=== PATIENT | female | born 1965 | race Caucasian/White ===

== ENCOUNTER 2019-07-12 17:41 | Emergency (ER) | payer OTHER, MEDICAID, SELFPAY ==
[~2019-07-12] VITALS: Ht 160 cm; Wt 99.8 kg
[~2019-07-12 17:41] MED LIST: DOCU-7 PO; FLUR30CA PO; FLUT1POW3 IH; GABA-636 PO; IBUP200C97 PO; LORA10TA19 PO; LORA2SOL69 PO; OMEP40EC24 PO; PARO30TA62 PO; QUET400T PO
[2019-07-12 18:03] VITALS: BP 150/75
--- NOTE | 2019-07-12 18:09 | NUR ---
53 Y/F PRESENTS TO ED FOR PRODUCTIVE COUGH X 12 DAYS. PT WAS SEEN AND DX WITH URI AND GIVEN MOTRIN. PT ALSO TAKING ALBUTEROL AND REPROTS RELIEF. PT REPORTS THROAT IRRIATION. PT ALSO REPORTS NAUSEA, AND VOMITING MUCUS. REPORTS DIARHEA, HX OF COLOSTOMY. RIGHT UPPER EXP WHEEZES AUSCULATED. RR EVEN AND UNLABORED. ABD SOFT, BS ACTIVE X 4. VSS. PMH- ASTHMA, HTN, HYPERCHOLESTEROLEMIA, BIPOLAR
--- NOTE | 2019-07-12 19:01 | NUR ---
PT AMBULATED TO BED 10, STEADY GAIT.
--- NOTE | 2019-07-12 19:11 | NUR ---
ERMD AT BEDSIDE EVALUATING PT.
[2019-07-12] MEDS ORDERED: DEXAMETHASONE 4 MG TAB PO ONE (19:15)
[2019-07-12] MEDS ORDERED: ALBUTEROL HFA MDI 90 MCG/ACTUATION 8 GM INH ONE ×2 (19:15)
[2019-07-12] MEDS ORDERED: AZITHROMYCIN 250 MG TAB PO ONE (19:15)
[2019-07-12] MEDS ORDERED: DEXAMETHASONE 10 MG/ML VIAL IVP ONE (19:20)
--- NOTE | 2019-07-12 19:20 | NUR ---
COVID SWAB COLLECTED AND SENT TO LAB.
--- NOTE | 2019-07-12 19:20 | NUR ---
RECIEVED REPORT FROM YOMAIRA EL.
--- NOTE | 2019-07-12 19:35 | NUR ---
XR AT BEDSIDE.
--- NOTE | 2019-07-12 19:43 | NUR ---
CALLED RT FOR INH MED ADMINISTRATION.
--- NOTE | 2019-07-12 19:50 | NUR ---
Respiratory Therapist at bedside for respiratory intervention.
--- NOTE | 2019-07-12 19:50 | NUR ---
RT AT BEDSIDE ADMINISTERING INH MEDICATIONS
--- NOTE | 2019-07-12 20:22 | NUR ---
SPOKE WITH CAMERON FROM [facility] TO EXPLAIN PLAN OF CARE FOR JOVITA AND REQUEST A RIDE HOME. SHE SAID SHE IS ON HER WAY.
[2019-07-12 20:23] VITALS: BP 150/75
--- NOTE | 2019-07-12 20:23 | NUR ---
Patient discharged with v/s stable. Written and verbal after care instructions given and explained. Patient alert, oriented and verbalized understanding of instructions. Ambulatory with steady gait. All questions addressed prior to discharge. ID band removed. Patient advised to follow up with PMD. Rx of PREDNISONE, AZITHROMYCIN given. Patient educated on indication of medication including possible reaction and side effects. Opportunity to ask questions provided and answered.
== END 2019-07-12 20:23 | disposition home or self-care (01) ==
LOC: EEVIPCON 17:41 → MED 17:41
DX: J06.9 Acute upper respiratory infection, unspecified (principal); I10 Essential (primary) hypertension; Z20.828 Contact with and (suspected) exposure to other viral communicable diseases; Z88.0 Allergy status to penicillin; Z79.899 Other long term (current) drug therapy
CPT/HCPCS: 71045; 96374; 99284; C9803; J1100; Q0092; U0003; 36415; 94664

== ENCOUNTER 2022-12-12 13:58 | Emergency (ER) | payer OTHER, MEDICAID ==
[~2022-12-12] VITALS: Ht 160 cm; Wt 97.1 kg
[2022-12-12 14:36] VITALS: BP 128/93; PULSE 81; RESP 20; TEMP 98.3; O2SAT 95
[2022-12-12] MEDS ORDERED: LIDOCAINE 5% 1 EA PATCH TP ONE (15:00)
[2022-12-12] MEDS ORDERED: methocarbamoL 500 MG TAB PO ONE (15:00)
[2022-12-12] MEDS ORDERED: ALBUTEROL SULFATE/IPRATROPIU 3 ML SOL IH ONE (15:00)
[2022-12-12] MEDS ORDERED: predniSONE 20 MG TAB PO ONE (15:00)
[2022-12-12] MEDS ORDERED: KETOROLAC 30 MG/ML VIAL IM ONE (15:00)
[2022-12-12 16:11] LABS: BASOPHILS # (AUTO) 0.1 K/uL (0.00-0.22); BASOPHILS % (AUTO) 0.8 % (0.0-2.0); EOSINOPHILS # (AUTO) 0.1 K/uL (0-0.4); EOSINOPHILS % (AUTO) 0.9 % (0.0-4.0); HEMATOCRIT 38.3 % (36-48); HEMOGLOBIN 13.1 g/dL (12.0-16.0); LYMPHOCYTES # (AUTO) 1.6 K/uL (2.5-16.5); LYMPHOCYTES % (AUTO) 18.4 % (20.5-51.1); MEAN CORPUSCULAR HEMOGLOBIN 32 pg (27-31); MEAN CORPUSCULAR HGB CONC 34 g/dL (33-37); MEAN CORPUSCULAR VOLUME 94.5 fL (80-94); MONOCYTES # (AUTO) 0.9 K/uL (0.8-1.0); MONOCYTES % (AUTO) 10.9 % (1.7-9.3); NEUTROPHILS # (AUTO) 5.9 K/uL (1.8-7.7); PLATELET COUNT (AUTO) 309 K/uL (140-450); RED BLOOD CELL COUNT(AUTO) 4.06 MIL/uL (4.20-5.40); RED CELL DISTRIBUTION WIDTH 13.6 % (11.6-13.7); WHITE BLOOD COUNT (AUTO) 8.6 K/uL (4.8-10.8)
[2022-12-12 16:32] LABS: ALBUMIN 3.9 g/dL (3.4-5.0); ANION GAP 13.6 (8-16); CREATININE 0.8 mg/dL (0.6-1.3); POTASSIUM 4.6 mmol/L (3.5-5.1); TOTAL BILIRUBIN 0.5 mg/dL (0.0-1.0); TOTAL PROTEIN, SERUM 7.5 g/dL (6.4-8.2)
[2022-12-12 16:52] VITALS: PULSE 85; RESP 21; O2SAT 95
[2022-12-12] MEDS ORDERED: HYDROcodone/APAP 5/325 MG 1 TAB TAB PO ONE (16:55)
[2022-12-12] MEDS ORDERED: PRED20TA5 PO ×2 (16:59→18:25)
[2022-12-12] MEDS ORDERED: ACET-5629 PO ×2 (16:59→18:25)
[2022-12-12] MEDS ORDERED: LID5T TP ×2 (16:59→18:25)
[2022-12-12] MEDS ORDERED: DICL100G32 TP ×2 (17:00→18:25)
[2022-12-12 17:09] VITALS: BP 119/89; PULSE 86; RESP 18; TEMP 98.3; O2SAT 95
[2022-12-14] MEDS ORDERED: ACET-8905 PO (09:56)
== END 2022-12-12 17:09 | disposition home or self-care (01) ==
LOC: MED 13:58
DX: S22.32XA Fracture of one rib, left side, initial encounter for closed fracture (principal); E87.1 Hypo-osmolality and hyponatremia; J45.901 Unspecified asthma with (acute) exacerbation; J44.9 Chronic obstructive pulmonary disease, unspecified; I10 Essential (primary) hypertension; Z79.899 Other long term (current) drug therapy; Z88.8 Allergy status to other drugs, medicaments and biological substances; W18.30XA Fall on same level, unspecified, initial encounter; Y93.89 Activity, other specified; Y92.89 Other specified places as the place of occurrence of the external cause; Y99.8 Other external cause status
CPT/HCPCS: 36415; 71101; 80053; 83880; 84484; 85025; 93005; 94640; 96372; 99285; J1885; J7512